=== PATIENT | male | born 1965 | race Caucasian/White ===

== ENCOUNTER 2021-08-09 22:29 | Inpatient (IN) | payer MEDICARE, SELFPAY ==
[2021-08-09 22:36] VITALS: BP 155/99; PULSE 98; RESP 24; TEMP 37.6; O2SAT 87; BMI 38.2
--- NOTE | 2021-08-09 22:45 | ECG_ITS ---
APPROVED REPORT Exam: Resting ECG HR:96 bpm ECG Measurements Heart Rate 96 AXES SC 144 P 21 QRSd 92 QRS 7 QT 336 T 6 QTc 424 Conclusion Normal sinus rhythm Normal ECG Electronically signed by : Lionel Morgan MD 08/10/2021 09:16:51
--- NOTE | 2021-08-09 22:55 | PC.NURSE ---
pt going to radiology at this time
--- NOTE | 2021-08-09 22:58 | XR_ITS ---
PROCEDURE INFORMATION: Exam: XR Chest Exam date and time: 08/09/2021 10:58 PM Age: 56 years old Clinical indication: Cough and shortness of breath; Additional info: SOA TECHNIQUE: Imaging protocol: XR of the chest. Views: 2 views. COMPARISON: No relevant prior studies available. FINDINGS: Airway: Patent Lungs: Bilateral and diffuse ground-glass and hazy opacifications noted throughout the lungs, however most prominent in the mid to lung bases. Pleural spaces: Unremarkable. No pleural effusion. No pneumothorax. Heart/Mediastinum: The heart is mildly enlarged. Bones/joints: No acute skeletal abnormality or aggressive osseous lesion. IMPRESSION: Moderate, diffuse, and bilateral acute airspace disease highly concerning for atypical viral pneumonia in the appropriate clinical setting.
--- NOTE | 2021-08-09 22:58 | CT_ITS ---
PROCEDURE INFORMATION: Exam: CTA Chest With Contrast Exam date and time: 08/09/2021 10:58 PM Age: 56 years old Clinical indication: Cough and shortness of breath; Patient HX: Covid +; Additional info: SOA TECHNIQUE: Imaging protocol: Computed tomographic angiography of the chest with contrast. 3D rendering (Not supervised by radiologist): MIP and/or 3D reconstructed images were created by the technologist. Radiation optimization: All CT scans at this facility use at least one of these dose optimization techniques: automated exposure control; mA and/or kV adjustment per patient size (includes targeted exams where dose is matched to clinical indication); or iterative reconstruction. Contrast material: ISO 370; Contrast volume: 70 ml; Contrast route: INTRAVENOUS (IV); COMPARISON: CR XR CHEST 2V 08/09/2021 11:38 PM FINDINGS: Pulmonary arteries: Normal. No pulmonary emboli. Aorta: There is ectasia of the mid ascending thoracic aorta measuring 3.8 cm. The aorta demonstrates mild atherosclerotic calcification. No acute pathology in the aorta. 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 Lungs: Moderate, diffuse, and bilateral ground-glass and crazy paving airspace opacifications appreciated throughout the lungs. There is subpleural atelectasis of the dependent portions of the lungs. Pleural spaces: Unremarkable. No pneumothorax. No pleural effusion. Heart: The heart is mildly enlarged. No pericardial thickening or effusion. Lymph nodes: Unremarkable. No enlarged lymph nodes. Diaphragm: A small hiatal hernia is present. Bones/joints: No acute skeletal pathology. Moderate multilevel degenerative changes of the spine, as manifested by multilevel anterior osteophytes and multilevel decrease in intervertebral disc space. Soft tissues: Unremarkable. Other findings: The visualized intra-abdominal structures demonstrate no acute findings. The airways are patent. IMPRESSION: 1. Moderate, diffuse, and bilateral acute airspace disease most in favor with COVID-19 pneumonia in this patient with a positive history. 2. Incidental findings as detailed above.
[2021-08-09 23:00] VITALS: BP 136/90; PULSE 92; O2SAT 95
[2021-08-09 23:03] LABS: Influenza A, PCR Not Detected (NotDetected); Influenza B, PCR Not Detected (NotDetected)
[2021-08-09 23:07] LABS: ABG Base Excess 2.6 mmol/L (-2.4-2.3); ABG HCO3 25.5 mmhg (22.0-26.0); ABG Oxygen Saturation 95 % (90-100); ABG PCO2 31.9 mmhg (35.0-45.0); ABG PH 7.52 mmol/L (7.35-7.45); ABG PO2 65.4 mmhg (80-100); ABG TCO2 26.4 mmhg (23-27)
[2021-08-09 23:07] LABS: Basophils % 0.8 % (0.1-2.0); Eosinophils % 0.3 % (0.1-12.0); Hematocrit 44.7 % (42.0-52.0); Hemoglobin 14.5 g/dL (14.1-18.0); Lymphocytes # 0.5 K/mm3 (0.7-4.5); Lymphocytes % 19.6 % (10-50); Mean Corpuscular HGB Conc 32.5 g/dL (31.8-35.4); Mean Corpuscular Hemoglobin 30.7 pg (27.0-31.2); Mean Corpuscular Volume 94.5 fl (80-94); Mean Platelet Volume 9.5 fl (7.4-10.4); Monocytes # 0.2 K/mm3 (0.1-1.0); Monocytes % 6.5 % (1.7-9.3); Neutrophils % 72.8 % (37.0-80.0); Platelet Count 165 K/mm3 (142-424); Red Blood Count 4.72 M/mm3 (4.60-6.20); Red Cell Distribution Width 14.2 % (11.5-17.5); White Blood Count 2.7 K/mm3 (4.8-10.8)
--- NOTE | 2021-08-09 23:08 | HMH.EDSOB ---
ED Disposition Clinical Impression: Acute respiratory failure due to COVID-19, Obesity (BMI 30-39.9) Disposition: Admitted As Inpatient Condition on Discharge: Serious Referrals: Provider,Referral, [Primary Care Provider] - - Critical Care Critical Care Time: No Attestation: On 08/09/21, the high probability of a clinically significant, sudden or life threatening deterioration of the following system(s) required my full and direct attention, intervention and personal management. The time I documented below is in addition to time spent performing reported procedures but includes the following listed in this critical care notation. Medical Decision Making - Medical Records Medical records reviewed: Yes: I reviewed the patient's medical records. - Lino Inquiry Pt receiving controlled substance: No Vital Signs: 08/09/21 22:36 08/09/21 23:00 08/09/21 23:30 Temperature 99.6 F Temperature Source Oral Pulse Rate 92 H 77 Pulse Rate [Right] 98 H Respiratory Rate 24 Blood Pressure 136/90 117/78 Blood Pressure [Right Arm] 155/99 H Blood Pressure Mean [Right Arm] 117 02 Sat by Pulse Oximetry 87 L 95 96 Oxygen Delivery Method Room Air Nasal Cannula Nasal Cannula Oxygen Flow Rate (LPM) 3 3 08/10/21 00:09 08/10/21 00:15 08/10/21 01:00 Temperature Temperature Source Pulse Rate 77 91 H 80 Pulse Rate [Right] Respiratory Rate Blood Pressure 132/77 122/76 136/91 H Blood Pressure [Right Arm] Blood Pressure Mean [Right Arm] 02 Sat by Pulse Oximetry 95 96 96 Oxygen Delivery Method Oxygen Flow Rate (LPM) 3 3 3 - Lab Data Lab results reviewed: Yes: I reviewed the patient's lab results. Lab Results 08/09/21 22:48: SARS-CoV-2 (PCR) Detected A, Influenza A Untype (PCR) Not detected, Influenza Type B (PCR) Not detected 08/09/21 22:50: WBC 2.7 L, RBC 4.72, Hgb 14.5, Hct 44.7, MCV 94.5 H, MCH 30.7, MCHC 32.5, RDW 14.2, Plt Count 165, MPV 9.5, Neut % (Auto) 72.8, Lymph % (Auto) 19.6, [place] % (Auto) 6.5, Eos % (Auto) 0.3, Baso % (Auto) 0.8, Neut # (Auto) 2.0, Lymph # (Auto) 0.5 L, [place] # (Auto) 0.2, Eos # (Auto) 0.0, Baso # (Auto) 0.0, ESR 26 H 08/09/21 22:50: Sodium 132 L, Potassium 4.1, Chloride 96 L, Carbon Dioxide 29, Anion Gap 11.1, BUN 8 L, Creatinine 0.60 L, Estimated Creat Clear 208, Estimated GFR 140, Est GFR ( Amer) 170, Glucose 146 H, Calcium 8.7, Total Bilirubin 0.2, AST 92 H, ALT 46, Alkaline Phosphatase 55, Troponin I < 0.01, C-Reactive Protein 52.2 H, Total Protein 7.3, Albumin 4.0, Globulin 3.3 H, Albumin/Globulin Ratio 1.2, Procalcitonin 0.098 08/09/21 22:50: Lactate 1.1 08/09/21 22:58: Specimen Source Left radial, ABG pH 7.52 H, ABG pCO2 31.9 L, ABG pO2 65.4 L, ABG HCO3 25.5, ABG Total CO2 26.4, ABG O2 Saturation 95, ABG Base Excess 2.6 H, Onesimo Test Acceptable Result diagrams: 08/09/21 22:50 08/09/21 22:50 Orders (Tests/Meds): ED MEDICATIONS Generic Name Dose Route Start Last Admin Trade Name Freq PRN Reason Stop Dose Admin Sodium Chloride 1,000 mls @ 999 mls/hr 08/09/21 23:00 08/09/21 23:10 Sod Chlor 0.9% 1000ml Bag IV 08/10/21 00:00 999 mls/hr .Q1H1M TORRI Administration Discontinued Medications Generic Name Dose Route Start Last Admin Trade Name Freq PRN Reason Stop Dose Admin Dexamethasone Sodium Phosphate 10 mg 08/09/21 23:00 08/09/21 23:09 Dexamethasone 4mg/Ml 5ml Mdv IV 08/09/21 23:01 10 mg ONCE ONE Administration Iopamidol 70 ml 08/10/21 00:18 08/10/21 00:19 Iopamidol-370 (76%);100ml Bottle IV 08/10/21 00:19 70 ml ONCE ONE Administration Ketorolac Tromethamine 30 mg 08/09/21 23:00 08/09/21 23:09 Ketorolac 30mg/Ml Vial IV 08/09/21 23:01 30 mg ONCE ONE Administration Sodium Chloride 50 ml 08/10/21 00:18 08/10/21 00:19 0.9 % Sodium Chloride 50 Ml Vial IV 08/10/21 00:19 50 ml ONCE ONE Administration Sodium Chloride 10 ml 08/10/21 00:18 08/10/21 00:19 Sodium Chloride 0.9% 10ml Syr (R
[2021-08-09 23:09] LABS: Allen's Test Acceptable; Source Left Radial
[2021-08-09 23:12] LABS: Alanine Aminotransferase 46 U/L (12-78); Albumin/Globulin Ratio 1.2 (1.1-1.8); Alkaline Phosphatase 55 U/L (38-126); Anion Gap 11.1 mEq/L (5-15); Aspartate Amino Transferase 92 U/L (17-59); Bilirubin,Total 0.2 mg/dl (0.2-1.3); Blood Urea Nitrogen 8 mg/dl (9-20); Calcium 8.7 mg/dl (8.4-10.2); Carbon Dioxide 29 mmol/L (22.0-30.0); Chloride 96 mmol/L (98-107); Creatinine Clearance Estimated 208 mL/min (50-200); Estimated Glomerular Filt Rate 140 ml/min (>60); GFR (African American) 170 ML/MIN (>60); Globulin 3.3 g/dL (1.3-3.2); Glucose 146 mg/dl (74-100); Potassium 4.1 mmoL/L (3.5-5.1); Sodium 132 mmol/L (136-145); Total Protein,Serum 7.3 g/dl (6.3-8.2)
[2021-08-09 23:18] LABS: C-Reactive Protein 52.2 mg/L (0-4)
[2021-08-09 23:19] LABS: Lactic Acid 1.1 mmol/L (0.7-2.1)
[2021-08-09 23:28] LABS: Coronavirus 19, PCR Detected (NotDetected)
[2021-08-09 23:30] VITALS: BP 117/78; PULSE 77; O2SAT 96
[2021-08-09 23:30] LABS: Troponin I < 0.01 ng/ml (0.00-0.034)
[2021-08-09 23:31] LABS: Procalcitonin 0.098 ng/mL (0.0-2.0)
[2021-08-09 23:32] LABS: Erythrocyte Sedimentation Rate 26 mm/hr (0-20)
--- NOTE | 2021-08-09 23:59 | PC.NURSE ---
pt gone to radiology at this time
[2021-08-10] VITALS (13 sets, daily range): BP systolic 122–137; BP diastolic 61–98; PULSE 77–91; RESP 17–22; TEMP 36.4–37.1; O2SAT 88–98; BMI 37.7
--- NOTE | 2021-08-10 01:22 | PC.NURSE ---
paged dr harris @ this time
--- NOTE | 2021-08-10 01:37 | PC.NURSE ---
ayleen on phone with dr harris
--- NOTE | 2021-08-10 01:41 | PC.NURSE ---
[employer] supervisor called for bed assignment
--- NOTE | 2021-08-10 02:19 | PC.NURSE ---
PT ARRIVED TO FLOOR VIA W/C FROM ED W/STAFF AT [id number]
--- NOTE | 2021-08-10 06:05 | PC.NURSE ---
no acute changes since admission to floor, room air sat this morning is 88%, pt returned to 2L NC
--- NOTE | 2021-08-10 07:43 | P.CONPHA_ITS ---
[facility] Pharmacy VTE Monitoring - Patient Demographics Admission date: 08/10/21 Report Date: 08/10/21 Time: 07:43 Allergies/Adverse Reactions: Patient Allergies No Known Allergies Allergy (Verified 08/10/21 02:28) Height: 1.65 m Weight: 102.693 kg Patient Problems: Current Active Problems Acute respiratory failure due to COVID-19 (Acute) Obesity (BMI 30-39.9) (Acute) - VTE Risk Labs: VTE Related Lab Results Hgb 14.5 g/dL (14.1-18.0) 08/09/21 22:50 Hct 44.7 % (42.0-52.0) 08/09/21 22:50 Plt Count 165 K/mm3 (142-424) 08/09/21 22:50 BUN 8 mg/dl (9-20) L 08/09/21 22:50 Creatinine 0.60 mg/dl (0.66-1.25) L 08/09/21 22:50 Estimated Creat Clear 208 mL/min (50-200) 08/09/21 22:50 Was VTE Risk Assessment Performed: Yes VTE Score: 3 VTE Risk Level: Low Risk Clinical Trial Participant: No - Prophylaxis VTE Prophylaxis Ordered?: Yes Types of VTE Prophylaxis: TEDS Knee High Location of Applied Device: Bilateral Lower Extremeties Pharmacologic Type: Enoxaparin
--- NOTE | 2021-08-10 08:02 | HMH.HP ---
*Admission Date: 08/10/21 *Chief complaint: COVID pneumonia *History of present illness: Mr. Stein is an otherwise healthy 56-year-old male on no home medications and no chronic conditions. Presented to the ER last night due to worsening cough and respiratory distress. Symptoms have been progressing for the past 3 to 4 days. He came down from the [place] area where he lives to help a friend out for a few weeks. While here has been exposed to Covid. He is unvaccinated at this time. Developed prominent nausea and diarrhea, cough, shortness of breath. On arrival to the ER, patient was found to have mild hypoxia. Testing showed that he was positive for Covid pneumonia with positive PCR and bilateral patchy airspace disease on CT. Admitted to medicine for further management. On assessment this morning, patient states he feels little bit better. Stable on 2 L nasal cannula oxygen. Still having some mild abdominal discomfort and diarrhea this morning. Denies any chest pain, palpitations, confusion, headaches. Tolerating fair p.o. intake. [place] any significant past medical history. Only previous surgery is abdominal hernia repair. No other hospitalizations. [facility] History I have reviewed the patient's past medical history: Yes Medical History: Denies:: Chronic Obstructive Pulmonary Disease (COPD), Diabetes Mellitus Type 2, Gastroesophageal Reflux Disease(GERD) *Have you ever received a pneumonia vaccine?: No *Have you received a flu vaccine this season?: No Other Surgeries: Yes: Hernia Repair Amputation: No Fractures: No - *Social History Smoking Status: Never smoker Alcohol Intake: never *Occupational Status:: unemployed *Travel in the last 8 weeks: Inside the [facility] Family Hx:: Alcoholism Review of Systems - Review of Systems Review of systems:: pertinent systems reviewed and negative unless documented below (14 point review of systems performed, pertinent positives and negatives as per HPI) - *Neurologic Denies localized weakness, Denies seizure-like activity Meds Home Medications Medication Instructions Recorded Confirmed Type No Known Home Medications 08/09/21 08/10/21 History Allergies Allergy/AdvReac Type Severity Reaction Status Date / Time No Known Allergies Allergy Verified 08/10/21 02:28 Exam Vital signs and Labs for Last 24 Hours: Temp Pulse Resp BP Pulse Ox 98.4 F 86 18 134/97 H 88 L 08/10/21 05:00 08/10/21 05:00 08/10/21 05:00 08/10/21 05:00 08/10/21 06:04 Laboratory Results - last 24 hr 08/09/21 22:48: SARS-CoV-2 (PCR) Detected A, Influenza A Untype (PCR) Not detected, Influenza Type B (PCR) Not detected 08/09/21 22:50: WBC 2.7 L, RBC 4.72, Hgb 14.5, Hct 44.7, MCV 94.5 H, MCH 30.7, MCHC 32.5, RDW 14.2, Plt Count 165, MPV 9.5, Neut % (Auto) 72.8, Lymph % (Auto) 19.6, [place] % (Auto) 6.5, Eos % (Auto) 0.3, Baso % (Auto) 0.8, Neut # (Auto) 2.0, Lymph # (Auto) 0.5 L, [place] # (Auto) 0.2, Eos # (Auto) 0.0, Baso # (Auto) 0.0, ESR 26 H 08/09/21 22:50: Sodium 132 L, Potassium 4.1, Chloride 96 L, Carbon Dioxide 29, Anion Gap 11.1, BUN 8 L, Creatinine 0.60 L, Estimated Creat Clear 208, Estimated GFR 140, Est GFR ( Amer) 170, Glucose 146 H, Calcium 8.7, Total Bilirubin 0.2, AST 92 H, ALT 46, Alkaline Phosphatase 55, Troponin I < 0.01, C-Reactive Protein 52.2 H, Total Protein 7.3, Albumin 4.0, Globulin 3.3 H, Albumin/Globulin Ratio 1.2, Procalcitonin 0.098 08/09/21 22:50: Lactate 1.1 08/09/21 22:58: Specimen Source Left radial, ABG pH 7.52 H, ABG pCO2 31.9 L, ABG pO2 65.4 L, ABG HCO3 25.5, ABG Total CO2 26.4, ABG O2 Saturation 95, ABG Base Excess 2.6 H, Onesimo Test Acceptable I & O for Last 24 hours: Intake & Output 08/07/21 08/08/21 08/09/21 08/10/21 23:59 23:59 23:59 23:59 Intake Total 999 / 999 Balance 1000 / 1000 Weight 104.326 kg 102.693 kg - Constitutional mild distress, obese - *Routine HEENT Exam Head: Present: normocephalic Eye: Present: EOM
[2021-08-10 08:25] LABS: Basophils % 1.1 % (0.1-2.0); Eosinophils % 0.1 % (0.1-12.0); Hematocrit 44.5 % (42.0-52.0); Hemoglobin 14.3 g/dL (14.1-18.0); Lymphocytes # 0.3 K/mm3 (0.7-4.5); Lymphocytes % 23.5 % (10-50); Mean Corpuscular HGB Conc 32.1 g/dL (31.8-35.4); Mean Corpuscular Hemoglobin 30.8 pg (27.0-31.2); Mean Corpuscular Volume 96.2 fl (80-94); Mean Platelet Volume 9.7 fl (7.4-10.4); Monocytes # 0.1 K/mm3 (0.1-1.0); Neutrophils # 0.9 K/mm3 (1.8-7.8); Neutrophils % 69.2 % (37.0-80.0); Platelet Count 161 K/mm3 (142-424); Red Blood Count 4.63 M/mm3 (4.60-6.20); Red Cell Distribution Width 14.4 % (11.5-17.5); White Blood Count 1.3 K/mm3 (4.8-10.8)
[2021-08-10 08:43] LABS: Chloride 98 mmol/L (98-107); Potassium 4.7 mmoL/L (3.5-5.1); Sodium 133 mmol/L (136-145)
[2021-08-10 08:46] LABS: Anion Gap 9.7 mEq/L (5-15); Blood Urea Nitrogen 8 mg/dl (9-20); Carbon Dioxide 30 mmol/L (22.0-30.0); Creatinine Clearance Estimated 204 mL/min (50-200); Estimated Glomerular Filt Rate 140 ml/min (>60); GFR (African American) 170 ML/MIN (>60)
[2021-08-10 08:47] LABS: Calcium 8.3 mg/dl (8.4-10.2); Chol/HDL Ratio 3.5 (1-3.5); Cholesterol 101 mg/dl (140-200); Glucose 259 mg/dl (74-100); HDL Cholesterol 29 mg/dl (40-60); Magnesium 1.9 mg/dl (1.6-2.3); Triglycerides 84 mg/dl (30-150); VLDL Cholesterol 17 mg/dL (0-40)
[2021-08-10 08:57] LABS: Direct LDL Cholesterol 43.59 mg/dL (100-129)
--- NOTE | 2021-08-10 10:00 | SW/DCPLANNER ---
Addendum entered by Lore Amaro 08/10/21 11:58: Address patient will reside at [address] [facility] [address]. Addendum entered by Lore Amaro 08/10/21 10:53: [employer] has delivered portable O2 for this patient. Original Note: Patient information/order has been faxed to [facility] for home O2/portable: patient is planned to discharge home tomorrow. I will follow up with Yanely once patient information is reviewed.
[2021-08-10 17:08] LABS: Hemoglobin A1C 6.2 % (4.0-6.0)
--- NOTE | 2021-08-10 19:52 | PC.NURSE ---
No acute changes this shift.
[2021-08-11] VITALS: BP 117/67; PULSE 81; RESP 18; TEMP 36.7; O2SAT 91
--- NOTE | 2021-08-11 03:21 | PC.NURSE ---
No acute changes this shift. Pt remains on 2L NC with stats >90%. Pt denies any pain, SOA. VSS, will continue to monitor.
[2021-08-11 04:00] VITALS: BP 120/72; PULSE 79; RESP 17; TEMP 36.8; O2SAT 92
[2021-08-11 04:48] VITALS: BMI 37.7
[2021-08-11 07:16] LABS: Basophils % 0.4 % (0.1-2.0); Hematocrit 43.6 % (42.0-52.0); Hemoglobin 14.6 g/dL (14.1-18.0); Lymphocytes # 0.7 K/mm3 (0.7-4.5); Lymphocytes % 15.2 % (10-50); Mean Corpuscular HGB Conc 33.5 g/dL (31.8-35.4); Mean Corpuscular Volume 92.6 fl (80-94); Monocytes # 0.4 K/mm3 (0.1-1.0); Monocytes % 7.6 % (1.7-9.3); Neutrophils # 3.6 K/mm3 (1.8-7.8); Neutrophils % 76.7 % (37.0-80.0); Platelet Count 206 K/mm3 (142-424); Red Blood Count 4.71 M/mm3 (4.60-6.20); Red Cell Distribution Width 13.4 % (11.5-17.5); White Blood Count 4.7 K/mm3 (4.8-10.8)
[2021-08-11 07:25] LABS: Chloride 98 mmol/L (98-107); Potassium 4.4 mmoL/L (3.5-5.1); Sodium 136 mmol/L (136-145)
[2021-08-11 07:28] LABS: Anion Gap 11.4 mEq/L (5-15); Blood Urea Nitrogen 9 mg/dl (9-20); Calcium 8.7 mg/dl (8.4-10.2); Carbon Dioxide 31 mmol/L (22.0-30.0); Creatinine Clearance Estimated 245 mL/min (50-200); Estimated Glomerular Filt Rate 173 ml/min (>60); GFR (African American) 210 ML/MIN (>60); Glucose 160 mg/dl (74-100)
[2021-08-11 08:00] VITALS: BP 145/78; PULSE 95; RESP 18; TEMP 36.9; O2SAT 91; O2SAT 92
--- NOTE | 2021-08-11 09:28 | HMH.DCSUM ---
General - General Admission date:: 08/10/21 Discharge date: 08/11/21 HPI HPI: Mr. Stein is an otherwise healthy 56-year-old male on no home medications and no chronic conditions. Presented to the ER last night due to worsening cough and respiratory distress. Symptoms have been progressing for the past 3 to 4 days. He came down from the [place] area where he lives to help a friend out for a few weeks. While here has been exposed to Covid. He is unvaccinated at this time. Developed prominent nausea and diarrhea, cough, shortness of breath. On arrival to the ER, patient was found to have mild hypoxia. Testing showed that he was positive for Covid pneumonia with positive PCR and bilateral patchy airspace disease on CT. Admitted to medicine for further management. On assessment this morning, patient states he feels little bit better. Stable on 2 L nasal cannula oxygen. Still having some mild abdominal discomfort and diarrhea this morning. Denies any chest pain, palpitations, confusion, headaches. Tolerating fair p.o. intake. Denies any significant past medical history. Only previous surgery is abdominal hernia repair. No other hospitalizations. Hospital Course Hospital Course: Patient was admitted, placed on supplemental oxygen at 2 to 3 L and did well with this with acceptable saturations and much improved dyspnea. Labs were otherwise okay except for some mild neutropenia that occurred after admission but this morning has resolved with total white count going back up above 4000. Patient felt much better. He was started on dexamethasone which resulted in significantly elevated glucose levels. A1c was checked which was above 6%. Patient notes that several months ago he had labs for a hernia repair and he stated they were normal. We discussed that his A1c might be high because of postprandial sugars while his fasting sugar was low. Regardless, given his need to be on dexamethasone we discussed going home on Metformin therapy. This morning he feels much better, exam is normalized. Plan will be to discharge him home to his friend's house with home oxygen at 2 L. He will be placed on dexamethasone and Metformin, he will follow-up in our office on Friday before discharge back to his home in [place] to see if he has an ongoing oxygen requirement. Objective Vital signs: Temp Pulse Resp BP Pulse Ox 98.5 F 95 H 18 145/78 H 91 L 08/11/21 08:00 08/11/21 08:00 08/11/21 08:00 08/11/21 08:00 08/11/21 08:00 no acute distress - *Routine HEENT Exam Head: Present: normocephalic Eye: Present: EOMI, PERRL ENT: Present: mucous membranes moist - *Routine Neck Exam Present: supple - *Routine Respiratory Exam Present: CTA bilaterally - *Routine Cardiovascular Exam Present: RRR - *Routine Abdominal Exam Present: soft, normoactive bowel sounds. Absent: tenderness - *Routine Extremities Exam Absent: cyanosis, clubbing, edema - *Routine Skin Exam Present: warm. Absent: rash - Detailed Eye Exam Eyelids: Bilateral normal inspection Results Labs on day of discharge: Labs from last 24 hours 08/11/21 08/11/21 08/09/21 06:15 06:15 22:50 WBC 4.7 L D RBC 4.71 Hgb 14.6 Hct 43.6 MCV 92.6 MCH 31.0 MCHC 33.5 RDW 13.4 Plt Count 206 D MPV 9.0 Neut % (Auto) 76.7 Lymph % (Auto) 15.2 [place] % (Auto) 7.6 Eos % (Auto) 0.0 L Baso % (Auto) 0.4 Neut # (Auto) 3.6 Lymph # (Auto) 0.7 [place] # (Auto) 0.4 Eos # (Auto) 0.0 Baso # (Auto) 0.0 Sodium 136 Potassium 4.4 Chloride 98 Carbon Dioxide 31 H Anion Gap 11.4 BUN 9 Creatinine 0.50 L Estimated Creat Clear 245 Estimated GFR 173 Est GFR ( Amer) 210 D Glucose 160 H D Hemoglobin A1c 6.2 H Calcium 8.7 DS: Diagnosis - Discharge Diagnosis (1) Acute respiratory failure due to COVID-19 Status: Acute (2) Obesity (BMI 30-39
--- NOTE | 2021-08-11 11:23 | PC.NURSE ---
pt has been discharged via private car with portab;e o2. [employer] in parking lot to deliver home o2. Meds being picked up at clinic pharmacy. IV discontiued. pt tolerating 2lnc well.
--- NOTE | 2021-08-11 11:26 | PC.NURSE ---
pt left floor at 1124
== END 2021-08-11 11:20 | disposition home or self-care (01) | DRG 177 ==
LOC: ER 08-10 01:41 → 2ND 08-10 01:59
PROVIDERS: Admitting Provider Internal Medicine Adolescent Medicine; Emergency Provider Emergency Medicine; Visit Provider Internal Medicine Adolescent Medicine
DX: U07.1 COVID-19 (principal); J12.82 Pneumonia due to coronavirus disease 2019; J96.01 Acute respiratory failure with hypoxia; E11.9 Type 2 diabetes mellitus without complications; Z79.84 Long term (current) use of oral hypoglycemic drugs
CPT/HCPCS: 36415; 71046; 71275; 80048; 80053; 80061; 82803; 83036; 83605; 83735; 84145; 84484; 85025; 85651; 86140; 87040; 93005; 96365; 96375; 99284; C9803; Q9967; U0003; U0005

== ENCOUNTER 2024-08-10 13:30 | Outpatient (POV) | payer MEDICARE, SELFPAY | END 2024-08-10 23:59 | disposition home or self-care (01) | LOC: SC 08-11 06:38 | PROVIDERS: Visit Provider Dermatology | DX: Z00.00 Encounter for general adult medical examination without abnormal findings (principal) ==

== ENCOUNTER 2025-08-13 15:17 | Emergency (ER) | payer MEDICARE, MEDICAID, SELFPAY ==
[2025-08-13 15:21] VITALS: BP 179/101; PULSE 93; RESP 15; TEMP 36.8; O2SAT 100; BMI 36.6
--- OUTSIDE RECORDS SUMMARY | 2025-08-13 15:43 | XMS_ITS | Clinical Summary ---
Author Organization [facility] Address [address] [place] [id number] Care Team Providers Care Multicultural Manager Name Role Phone Unavailable Primary Care Provider Unavailabl e Source Comments [facility] is fully rolled out on [facility]. Psych encounters are restricted.[facility] Social History Tobacco Use Types Packs/Day Years Used Date Smoking Tobacco: Never Assessed Sex and Gender Information Value Date Recorded Sex Assigned at Not on file Legal Sex Male 10:20 PM EST Gender Identity Not on file Sexual Orientation Not on file Last Filed Vital Signs Vital Sign Reading Time Taken Comments Blood Pressure 130/90 04/26/2021 1:07 PM EDT Pulse 82 04/26/2021 1:07 PM EDT Temperature 36 C (96.8 F) 04/26/2021 1:07 PM EDT Respiratory Rate 38 03/09/2021 1:00 PM EDT Oxygen Saturation 98% 04/26/2021 1:07 PM EDT Inhaled Oxygen Concentration - - Weight 110 kg (242 lb 8.1 oz) 05/25/2021 1:11 PM EDT Height 165.1 cm (5' 5 ) 04/26/2021 1:07 PM EDT Body Mass Index 40.36 04/26/2021 1:07 PM EDT Plan of Treatment Health Maintenance Due Date Last Done Comments Depression Screening Due 02/23/1968 DTAP/TDAP/TD Including Boost er Vaccine (1 - Tdap) 1986 Hepatitis B Vaccine (1 of 3 - 19+ 3-dose series) 1986 Colorectal Cancer Screening: Colonoscopy 10 Years 02/23/2012 Colorectal Cancer Screening: FIT DNA 02/23/2012 Colorectal Cancer Screening: FOBT/FIT 02/23/2012 Colorectal Cancer Screening: Sigmoidoscopy 02/23/2012 Colorectal Cancer Screening 02/23/2012 Hepatitis C Screening (Adult ): Once 2017 Pneumococcal Vaccine (50+ Yr s) (1 of 1 - PCV) 2017 Shingrix Vaccine (1 of 2) 2017 Social Determinants of Healt h Screening Due 11/03/2024 COVID-19 Vaccine (1 - 2023-2 5 season) 2025 Influenza Vaccine (#1) 2025 Lipid Disorder Sceening: Adjustable 01/31/2026 01/31/2021 HPV Vaccines (No Doses Required) Completed Meningococcal B Vaccine - Di scuss with patient and administer if appropriate Aged Out No longer eligible b ased on patient's age to complete this topic Meningococcal Vaccine (ACWY) Aged Out No longer eligible based on patient's age to complete this topic Procedures Procedure Name Priority Date/Time Associated Diagnosis Comments LIPID PANEL Routine 01/31/2021 10:47 AM EDT from Last 3 Months or Most Recently Relevant to Health Maintenance Results * (ABNORMAL) Lipid Panel (01/31/2021 10:47 AM EDT) Pathologist [facility] Lipids - Cholesterol, Total 197 100 - 199 mg/dL 02/01/2021 5:05 AM EDT [facility] 1 Lipids - Triglycerides 89 0 - 149 mg/dL 02/01/2021 5:05 AM EDT [facility] 1 Lipids - Hdl Cholesterol 66 >39 mg/dL 02/01/2021 5:05 AM EDT [facility] 1 Vldl Cholesterol Shabbir Ref Lab 16 5 - 40 mg/dL 02/01/2021 5:05 AM EDT [facility] 1 Ldl Chol Calc (Nih) Ref Lab 115(H) 0 - 99 mg/dL 02/01/2021 5:05 AM EDT [facility] 1 01/31/2021 10:4 7 AM EDT 01/31/2021 Comment:BLOOD Narrative [facility] - 02/01/2021 5:05 AM EDT Performed at: 01 - [facility] [address] [id number] Rn Ortho: Radha Betancur MD, Phone: [phone] us Vidhi Aquino MD LAB BLOOD ORDERABLES Final Res ult [facility] 1 from Last 3 Months or Most Recently Relevant to Health Maintenance
--- OUTSIDE RECORDS SUMMARY | 2025-08-13 15:43 | XMS_ITS | Clinical Summary ---
Author Organization [facility] Address [address] [place] [id number] Care Team Providers Care Rn Ante Partum Name Role Phone Provider, Outside Primary Care Provider Unavaila ble Allergies No known active allergies Medications No known medications Active Problems No known active problems Family History Medical History Relation Comments Other Father Alive and Well Mother Relation Status Comments Father Mother Social History Tobacco Use Types Packs/Day Years Used Date Smoking Tobacco: Never Alcohol Use Standard Drinks/Week Comments Yes 0 (1 standard drink = 0.6 oz pur e alcohol) Sex and Gender Information Value Date Recorded Sex Assigned at Not on file Legal Sex Male 2:16 AM EDT Gender Identity Not on file Sexual Orientation Not on file 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 Not on file Not on file Not on file Last Filed Vital Signs Vital Sign Reading Time Taken Comments Blood Pressure 118/84 06/30/2017 9:55 AM EDT Pulse 78 06/30/2017 9:55 AM EDT Temperature - - Respiratory Rate 10 06/30/2017 9:55 AM EDT Oxygen Saturation 99% 06/30/2017 9:55 AM EDT Inhaled Oxygen Concentration - - Weight 90.3 kg (199 lb) 06/30/2017 9:55 AM EDT Height 165.1 cm (5' 5 ) 03/06/2016 1:23 PM EDT Body Mass Index 33.12 03/06/2016 1:23 PM EDT Plan of Treatment Not on file Insurance MEDICARE Care Teams Rn Ante Partum Relationship Specialty Start Date End Date Provider, Outside PCP - General 11/20/21
--- NOTE | 2025-08-13 15:51 | [facility].EDGENADL ---
Discharge Plan Disposition Patient Disposition: Home, Self-Care Condition: Good Prescriptions Prescriptions: No Action ascorbic acid (vitamin C) 500 MG tablet 500 mg PO QID Qty: 60 0RF ergocalciferol (vitamin D2) 50,000 UNIT capsule 50,000 unit PO WEEKLY Qty: 8 0RF zinc sulfate 220 MG capsule 220 mg PO DAILY Qty: 30 0RF dexamethasone 4 MG tablet 4 mg PO BID Qty: 14 0RF metformin 500 MG tablet 500 mg PO BID Qty: 60 0RF Referrals Follow up/Referrals: Provider,Referral, MD [Primary Care Provider, Medical] - See instructions Activity Restrictions/Add. Instructions Additional Instructions/Restrictions: Please use erythromycin ointment 4 times daily. I want you to follow up with your eye doctor on Friday as discussed. If you have any new or worsening symptoms please return. Clinical Impressions Clinical Impression: Abrasion, corneal Print Language Print Language: Bengali Discharge ED Provider: Raul Rojas Adult HPI General Chief complaint: Eye Problems Stated complaint: has something in Left eye Time Seen by Provider: 08/13/25 15:37 Mode of Arrival: Ambulatory Source of Information: Patient Description of Symptoms (Recalled from ER Triage Doc. by RN): patient presents for left eye rednedd and irritation with possible foreign body. patient stated he was sweeping and cleaing some cobwebs overhead and woke up this morning with these symptoms. he stated he tried getting into his eye doctor today but they wont be back in office until Friday. History of Present Illness HPI narrative: This is a 60-year-old male patient who is presenting to the emergency department today for evaluation of left eye irritation. Patient states that he was dusting in his house earlier today and began feeling a foreign body sensation in the left eye. He states that he has chronic retinopathy and has chronic decreased visual acuity but he has not had any changes in his visual acuity since that time. He is not experiencing any pain in the eye. No headaches. No fevers or chills. No systemic symptoms Related Data Previous Rx's ?Medication ?Instructions ?Recorded ascorbic acid (vitamin C) 500 mg 500 mg PO QID #60 tabs 08/11/21 tablet dexamethasone 4 mg tablet 4 mg PO BID #14 tabs 08/11/21 ergocalciferol (vitamin D2) 1,250 50,000 unit PO WEEKLY #8 caps 08/11/21 mcg (50,000 unit) capsule metformin 500 mg tablet 500 mg PO BID #60 tabs 08/11/21 zinc sulfate 50 mg zinc (220 mg) 220 mg (4.4 x 50 mg zinc (220 mg)) 08/11/21 capsule PO DAILY #30 caps Allergies Allergy/AdvReac Type Severity Reaction Status Date / Time No Known Allergies Allergy Verified 08/10/21 02:28 [facility] Disclaimer: The information contained in this section may have been updated after the patient was seen, as this information can be updated by other users. Social History Smoking Status: Never smoker alcohol intake: never current occupational status: unemployed Travel in the last 8 weeks?: Inside the [place] Have you lived/traveled outside [place] in past 30 days?: No Contact w/someone who lives/traveled outside [place] past 30 days?: No Exposure to someone with infectious disease in past 14 days?: No Do you have a fever (greater than 100.4 F or 38 C)?: No Have you tested positive for COVID-19?: No Exposed to someone with COVID-19 in past 14 days?: No Do you have a sore throat?: No Do you have a cough?: No Do you have any weakness?: No Do you have any diarrhea?: No Are you experiencing any unusual bleeding?: No Do you have any muscle aches/pain?: No Do you have any abdominal pain?: No Are you experiencing loss of taste or smell?: No Other Medical History Have you received the Flu Vaccine for this season: No Have you received the Pneumonia Vaccine: No ROS Obtained: Yes Systems reviewed as appropriate & no additional complaints except as documented Physical Exam General General appearance: other (See MDM) Respiratory Respiratory exam: Present other (See MDM) Cardiovascular Cardiovascular exam: Present other (See MDM) Neurological Exam Neurological exam: Present other (See MDM) Medical Decision Making Medical Records Medical records reviewed: Yes I reviewed the patient's medical records. Screening: Per USPSTF and CDC recommendations, given the prevalence of disease in our region, it is our hospital?s policy to screen for HIV and viral Hepatitis for all patients aged 18 and over and those with ongoing risk factors. Lino Inquiry Pt receiving controlled substance: No Lino was queried for this patient: No Vital Signs: 08/13/25 15:21 Temperature 98.2 F Temperature Source Oral Pulse Rate [Right Radial] 93 H Respiratory Rate 15 Blood Pressure [Right Arm] 179/101 H Blood Pressure Mean [Right Arm] 127 Blood Pressure Source [Right Arm] Automatic Cuff Blood Pressure Position [Right Arm] Sitting 02 Sat by Pulse Oximetry 100 Oxygen Delivery Method Room Air Medical Decision Narrative: In summary this is a 60-year-old male patient who is presenting to the emergency department today for evaluation of a foreign body sensation in left eye after dusting in his house today. The patient's comorbidities include obesity and type 2 diabetes. On initial evaluation of the patient they were resting comfortably in no acute distress and nontoxic in appearance. They are hemodynamically stable, saturating well room air, and are neurologically intact. Differential diagnosis includes corneal abrasion, corneal ulceration, ocular foreign body, among others On examination the left eye appears to have conjunctival injection. He does have tearing. Extraocular movements are full and visual houser are intact in all 4 quadrants. He does have decreased visual acuity but states that this is chronic. I performed a bedside assessment of the eye including fluorescein and intraocular pressure testing. His pressure is 9 mmHg in both eyes. I have everted the eyelids and there is no evidence of foreign body underneath the eyelids. he states that he has complete resolution of symptoms with tetracaine. On staining of the cornea with fluorescein he does not have any uptake, however there is a miss rate with fluorescein testing and his symptoms are very classic for corneal abrasion so we will treat the patient for corneal abrasion with erythromycin ointment to be used 4 times daily. 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 Critical Care Critical Care Time Critical Care Time: No
[2025-08-13] MEDS: FLUORESCEIN SODIUM 1MG STRIP 1 MG OP (15:58)
[2025-08-13] MEDS: TETRACAINE 0.5% OPTH SOL 15ML OP (15:58)
[2025-08-13 16:31] VITALS: BP 145/85; PULSE 74; RESP 15; TEMP 36.7; O2SAT 99
== END 2025-08-13 16:31 | disposition home or self-care (01) ==
PROVIDERS: Emergency Provider Student in an Organized Health Care Education/Training Program
DX: S05.02XA Injury of conjunctiva and corneal abrasion without foreign body, left eye, initial encounter (principal); W44.9XXA Unspecified foreign body entering into or through a natural orifice, initial encounter
CPT/HCPCS: 99283